=== PATIENT | male | born 2000 | race Caucasian/White ===

== ENCOUNTER 2021-03-08 23:08 | Emergency (ER) | payer OTHER ==
[~2021-03-08] VITALS: Ht 172.7 cm; Wt 74.4 kg
[~2021-03-08 23:08] MED LIST: IBUP100S22; PROM118S5
[2021-03-08 23:23] VITALS: BP 144/90
--- NOTE | 2021-03-08 23:26 | NUR ---
to lobby a/w bed ambulatory
--- NOTE | 2021-03-09 00:53 | NUR ---
PT TAKEN TO BED 2
--- NOTE | 2021-03-09 00:55 | NUR ---
PT. IS A 21 Y/O MALE THAT CAME INTO ED WITH C/O OF BILATERAL FLANK PAIN. PT. STATES THAT 2-3 WEEKS AGO THAT THE PAIN STARTED AND DESCRIBES PAIN AT "SOMEONE PUNCHING ME ON THE SIDES." DENIES DIARRHEA/FEVER, ADMITS TO N/V. PT. ALSO STATES IT HAS BEEN 3 DAYS THAT THE SYMPTOMS OF URGENCY, BURNING, AND ITCHINESS UPON URINATION. PT. RATES PAIN AT 6/10 ON THE PAIN SCALE AT THIS TIME. SKIN IS PINK/WARM/DRY; AAOX4 WITH EVEN AND STEADY GAIT; HR EVEN AND REGULAR; PT DENIES ANY FEVER, CP, SOB, OR COUGH AT THIS TIME;VSS; PATIENT POSITIONED FOR COMFORT; HOB ELEVATED; BEDRAILS UP X2; BED DOWN. ER MD MADE AWARE OF PT STATUS. PMH: DENIES ALLERGIES: SURYA
[2021-03-09 01:58] LABS: APPEARANCE,URINE CLEAR (CLEAR); BILIRUBIN,URINE NEGATIVE (NEGATIVE); BLOOD, URINE NEGATIVE (NEGATIVE); COLOR,URINE YELLOW (YELLOW); LEUKOCYTE ESTERASE ,URINE NEGATIVE (NEGATIVE); NITRITE, URINE NEGATIVE (NEGATIVE); PH,URINE 7.5 (5.0-9.0); UGLUCOSE NEGATIVE (NEGATIVE)
[2021-03-09 01:58] LABS: BASOPHILS # (AUTO) 0.1 K/uL (0.00-0.22); BASOPHILS % (AUTO) 0.9 % (0.0-2.0); EOSINOPHILS % (AUTO) 0.3 % (0.0-4.0); HEMATOCRIT 44.4 % (36-52); HEMOGLOBIN 14.9 g/dL (12.0-18.0); LYMPHOCYTES % (AUTO) 19.7 % (20.5-51.1); MEAN CORPUSCULAR HEMOGLOBIN 29 pg (27-31); MEAN CORPUSCULAR HGB CONC 34 g/dL (33-37); MEAN CORPUSCULAR VOLUME 87.4 fL (80-94); MONOCYTES # (AUTO) 0.6 K/uL (0.8-1.0); MONOCYTES % (AUTO) 6.3 % (1.7-9.3); NEUTROPHILS # (AUTO) 7.2 K/uL (1.8-7.7); NEUTROPHILS % (AUTO) 72.8 % (42.2-75.2); PLATELET COUNT (AUTO) 194 K/uL (140-450); RED BLOOD CELL COUNT(AUTO) 5.08 MIL/uL (4.20-6.10); RED CELL DISTRIBUTION WIDTH 13.3 % (11.6-13.7)
[2021-03-09 02:11] LABS: RBC,URINE 0-5 /HPF (0-5); WBC,URINE 0-5 /HPF (0-5)
[2021-03-09] MEDS: KETOROLAC 30 MG/ML VIAL IVP ONE (02:12)
[2021-03-09 02:15] LABS: ALBUMIN 4.4 g/dL (3.4-5.0); ANION GAP 10.3 (8-16); CARBON DIOXIDE 29.6 mmol/L (21-32); CREATININE 0.9 mg/dL (0.6-1.3); POTASSIUM 3.9 mmol/L (3.5-5.1); TOTAL BILIRUBIN 0.4 mg/dL (0.0-1.0)
--- NOTE | 2021-03-09 03:00 | NUR ---
PT. SEEN IN SUPINE POSITION LAYING COMFORTABLY WITH EYES CLOSED. VOICES NO COMPLAINTS AT THIS TIME
[2021-03-09] MEDS ORDERED: PROC-66 PO (04:16)
[2021-03-09] MEDS ORDERED: IBUP-2213 PO (04:16)
[2021-03-09 04:25] VITALS: BP 144/90
--- NOTE | 2021-03-09 04:25 | NUR ---
Patient discharged with v/s stable. Written and verbal after care instructions given and explained. Patient alert, oriented and verbalized understanding of instructions. Ambulatory with steady gait. All questions addressed prior to discharge. ID band removed. Patient advised to follow up with PMD. Rx of COMPAZINE AND IBUPROFEN given. Patient educated on indication of medication including possible reaction and side effects. Opportunity to ask questions provided and answered.
== END 2021-03-09 04:25 | disposition home or self-care (01) ==
LOC: MED 23:08
DX: I88.0 Nonspecific mesenteric lymphadenitis (principal); R03.0 Elevated blood-pressure reading, without diagnosis of hypertension; Z79.899 Other long term (current) drug therapy
CPT/HCPCS: 36415; 74176; 80053; 81001; 83690; 85025; 96374; 99284; J1885

== ENCOUNTER 2022-09-14 11:15 | Day surgery (SDC) | payer OTHER ==
[~2022-09-14] VITALS: Ht 175.3 cm; Wt 83.9 kg
[~2022-09-14 11:15] MED LIST changes: +IBUP-2213 PO; +PROC-66 PO
[2022-09-14] MEDS ORDERED: MIDAZOLAM 2 MG/2 ML VIAL ONE (14:38)
[2022-09-14] MEDS ORDERED: fentaNYL citrate 0.05 MG/ML VIAL ONE (14:39)
[2022-09-14] MEDS ORDERED: LIDOCAINE 2% 100 MG/5 ML UJET TP ONE (14:39)
[2022-09-14] MEDS ORDERED: fentaNYL citrate 0.05 MG/ML VIAL IVP ONE (15:40)
[2022-09-14] MEDS ORDERED: MIDAZOLAM 2 MG/2 ML VIAL IVP ONE (15:40)
== END 2022-09-14 16:00 | disposition home or self-care (01) ==
LOC: MDS 11:15 → MMU 11:28 → MDS 16:00
PROVIDERS: ATTEND Internal Medicine Gastroenterology
DX: R19.7 Diarrhea, unspecified (principal); R11.2 Nausea with vomiting, unspecified; F32.A Depression, unspecified; E78.00 Pure hypercholesterolemia, unspecified; F41.9 Anxiety disorder, unspecified; Z20.822 Contact with and (suspected) exposure to COVID-19; Z79.899 Other long term (current) drug therapy
CPT/HCPCS: 43235; 45380; 87426; J2250; J3010

== ENCOUNTER 2023-09-03 18:46 | Emergency (ER) | payer OTHER ==
[~2023-09-03] VITALS: Ht 172.7 cm; Wt 86.2 kg
[2023-09-03 18:51] VITALS: BP 148/85; PULSE 97; RESP 19; TEMP 97.9; O2SAT 99
[2023-09-03] MEDS: ALUMINUM HYD/MAG/SIMETHICONE 30 ML UDC PO ONE (19:45)
[2023-09-03] MEDS: ONDANSETRON 4 MG ODT PO ONE (19:45)
[2023-09-03 20:08] LABS: BASOPHILS # (AUTO) 0.1 K/uL (0.00-0.22); BASOPHILS % (AUTO) 0.6 % (0.0-2.0); EOSINOPHILS # (AUTO) 0.1 K/uL (0-0.4); EOSINOPHILS % (AUTO) 1.1 % (0.0-4.0); HEMOGLOBIN 14.8 g/dL (12.0-18.0); LYMPHOCYTES # (AUTO) 1.2 K/uL (2.0-11.5); LYMPHOCYTES % (AUTO) 9.5 % (20.5-51.1); MEAN CORPUSCULAR HEMOGLOBIN 30 pg (27-31); MEAN CORPUSCULAR HGB CONC 35 g/dL (33-37); MEAN CORPUSCULAR VOLUME 86.3 fL (80-94); MONOCYTES # (AUTO) 0.8 K/uL (0.8-1.0); MONOCYTES % (AUTO) 6.3 % (1.7-9.3); NEUTROPHILS % (AUTO) 82.5 % (42.2-75.2); PLATELET COUNT (AUTO) 211 K/uL (140-450); RED BLOOD CELL COUNT(AUTO) 4.98 MIL/uL (4.20-6.10); RED CELL DISTRIBUTION WIDTH 13.1 % (11.6-13.7); WHITE BLOOD COUNT (AUTO) 12.1 K/uL (4.8-10.8)
[2023-09-03 20:25] LABS: ANION GAP 8.6 (8-16); CALCIUM 8.7 mg/dL (8.5-10.1); CARBON DIOXIDE 31.4 mmol/L (21-32); CREATININE 0.9 mg/dL (0.6-1.3)
[2023-09-03 20:36] LABS: BILIRUBIN,DIRECT 0.1 mg/dL (0.0-0.3); TOTAL BILIRUBIN 0.3 mg/dL (0.0-1.0); TOTAL PROTEIN, SERUM 7.8 g/dL (6.4-8.2)
[2023-09-03] MEDS: NACL 0.9% 1,500 ML IV ONE (20:46)
[2023-09-03] MEDS: ONDANSETRON 4 MG/2 ML VIAL IVP ONE (20:47)
[2023-09-03] MEDS: FAMOTIDINE 20 MG/2 ML VIAL IVP ONE (20:47)
[2023-09-03] MEDS ORDERED: ONDA-188 SL (21:58)
[2023-09-03] MEDS: LORazepam 2 MG/ML VIAL IVP ONE (22:09)
[2023-09-03 22:13] VITALS: BP 148/85; PULSE 97; RESP 19; TEMP 97.9; O2SAT 99
== END 2023-09-03 23:11 | disposition home or self-care (01) ==
LOC: MED 18:46
DX: K29.70 Gastritis, unspecified, without bleeding (principal); R11.2 Nausea with vomiting, unspecified; F41.9 Anxiety disorder, unspecified; Z79.899 Other long term (current) drug therapy
CPT/HCPCS: 36415; 74022; 80048; 80076; 83690; 85025; 96361; 96374; 96375; 99284; J2060; J2405; J3490; J7030; Q0162